=== PATIENT | female | born 1970 | race Caucasian/White ===

== ENCOUNTER 2018-09-15 13:13 | Outpatient (CLI) | payer OTHER | END 2018-09-15 13:25 | disposition home or self-care (01) | LOC: MAMO-SONO 13:13 | DX: Z12.31 Encounter for screening mammogram for malignant neoplasm of breast (principal); Z87.898 Personal history of other specified conditions; N64.4 Mastodynia ==

== ENCOUNTER 2019-11-08 15:42 | Outpatient (CLI) | payer OTHER | END 2019-11-08 17:16 | disposition home or self-care (01) | LOC: OFIC 805 15:42 | PROVIDERS: ATTEND Otolaryngology | DX: R09.81 Nasal congestion (principal); G50.1 Atypical facial pain; J34.3 Hypertrophy of nasal turbinates; J32.8 Other chronic sinusitis ==

== ENCOUNTER → 2019-12-06 | Outpatient (CLI) | payer OTHER | END | disposition home or self-care (01) | LOC: OFIC 805 15:41 | PROVIDERS: ATTEND Otolaryngology | DX: J32.8 Other chronic sinusitis (principal); G50.1 Atypical facial pain; R09.81 Nasal congestion ==

== ENCOUNTER 2020-01-24 13:19 | Outpatient (CLI) | payer OTHER | END 2020-01-24 14:20 | disposition home or self-care (01) | LOC: OFIC 805 13:19 | PROVIDERS: ATTEND Otolaryngology | DX: R09.81 Nasal congestion (principal); J34.3 Hypertrophy of nasal turbinates; J32.8 Other chronic sinusitis ==

== ENCOUNTER 2024-03-26 08:03 | Emergency (ER) | payer OTHER ==
[~2024-03-26] VITALS: Ht 167.6 cm; Wt 63.5 kg
[2024-03-26] MEDS ORDERED: METFORMIN HCL850 MG (08:09)
[2024-03-26] MEDS ORDERED: ONDANSETRON HCL 2 MG/ML VIAL IV ONE (08:30)
[2024-03-26] MEDS ORDERED: FAMOtidine 10 MG/ML (4ML VIAL) IV ONE (08:30)
[2024-03-26] MEDS ORDERED: KETOROLAC TROMETHAMINE 60 MG VIAL IM ONE ×2 (08:30→08:31)
[2024-03-26] MEDS ORDERED: FAMOTIDINE/PF 20 MG/2 ML VIAL ONE (08:31)
[2024-03-26 08:57] LABS: HEMATOCRIT 46.2 % (36.0-45.00); HEMOGLOBIN 15.4 g/dL (12.0-15.00); MEAN CELL VOLUME 89.8 fL (80.00-100.00); MEAN CORPUSCULAR HEMOGLOBIN 29.9 pg (27.00-32.0); MEAN CORPUSCULAR HGB CONC 33.4 g/dl (32.0-36.0); PLATELET COUNT 326 K/uL (150-450); RED BLOOD COUNT 5.15 M/uL (4.00-6.00)
[2024-03-26 09:38] LABS: PARTIAL THROMBOPLASTIN TIME 28.9 SECONDS (22.0-34.0); PROTHROMBIN TIME 10.9 SECONDS (9.0-11.5)
[2024-03-26 09:48] LABS: ALBUMIN 4.3 gm/dL (3.4-5.0); BILIRUBIN TOTAL 0.71 mg/dL (0.3-1.2); CALCIUM 9.8 mg/dL (8.5-10.1); CREATININE SERUM 0.99 mg/dL (0.55-1.02); GFR 58.23; GLOBULINA 3.9 G/DL (2.4-3.5); POTASSIUM 3.74 mEq/L (3.5-5.1); TOTAL PROTEIN 8.2 gm/dL (6.4-8.2)
[2024-03-26] MEDS ORDERED: MEPERIDINE HCL/PF 50 MG/ML VIAL IM ONE (11:15)
[2024-03-26] MEDS ORDERED: CIPROFLOXACIN IN 5 % DEXTROSE 400 MG/200 ML PIGGYBAG IV ONE ×2 (11:15→11:40)
[2024-03-26 13:06] LABS: PH,URINE 5.5 (5.0-8.0); URINE APPEARANCE Clear; URINE BILIRRUBIN Negative (NEGATIVE); URINE COLOR Yellow; URINE KETONE 15 (NEGATIVE); URINE LEUKOCYTE Moderate; URINE NITRATE Positive; URINE PROTEIN Negative (NEGATIVE); URINE UROBILINOGEN 0.2 E.U./dl
[2024-03-26 13:10] LABS: URINE EPITHELIAL CELLS 101.7 uL (0.0-38.8); URINE RBC 7.8 uL (0.0-20.8); URINE WBC 479.3 uL (0.0-23.2)
[2024-03-26 13:37] LABS: URINE BACTERIA > 9821.5 uL (0.0-1933); URINE CAST 0.29 uL (0.0-1.40); URINE GLUCOSE >=1000 MG/DL (NEGATIVE)
[2024-03-26 13:52] LABS: URINE BLOOD TRACE
== END 2024-03-26 15:41 | disposition designated cancer center or children's hospital (05) ==
LOC: ER 08:06
PROVIDERS: General Practice
DX: R10.9 Unspecified abdominal pain (principal); Z88.0 Allergy status to penicillin
CPT/HCPCS: 36415; 74177; Q9965

== ENCOUNTER 2024-04-21 10:44 | Outpatient (CLI) | payer OTHER ==
[~2024-04-21 10:44] MED LIST: METFORMIN HCL850 MG
== END 2024-04-21 10:47 | disposition home or self-care (01) ==
LOC: RAD 10:44
DX: N20.1 Calculus of ureter (principal)

== ENCOUNTER 2024-11-07 11:22 | Outpatient (CLI) | payer OTHER | END 2024-11-07 11:25 | disposition home or self-care (01) | LOC: SONOGRAMA 11:22 | PROVIDERS: ATTEND Urology | DX: N20.0 Calculus of kidney (principal) ==